=== PATIENT | male | born 1935 | race Caucasian/White ===

== ENCOUNTER 2017-08-28 10:04 | Outpatient (CLI) | payer OTHER ==
[~2017-08-28 10:04] MED LIST: APETIGEN PLUS120 ML PO; AVODART0.5 MG; ENALAPRIL MALEAT5 MG; TRICOR145 MG
== END 2017-08-28 10:22 | disposition home or self-care (01) ==
LOC: NUCLEAR 10:04
DX: R94.31 Abnormal electrocardiogram [ECG] [EKG] (principal); I45.2 Bifascicular block; I11.9 Hypertensive heart disease without heart failure; R07.89 Other chest pain

== ENCOUNTER 2019-02-19 00:24 | Inpatient (IN) | payer OTHER ==
[~2019-02-19] VITALS: Ht 177.8 cm; Wt 85.3 kg
[2019-02-19] MEDS ORDERED: LEXAPRO5 MG (00:34)
[2019-02-19] MEDS ORDERED: CALCIUM 600+D1 EACH (00:35)
[2019-02-19] MEDS ORDERED: ATARAX25 MG (00:40)
[2019-02-19] MEDS ORDERED: NIFEDIPINE ER30 M1 (00:41)
== END 2019-02-20 12:16 | disposition home or self-care (01) | DRG 343 ==
LOC: ER 00:24 → O/R 06:01 → SURG 06:01 → SEC-K 06:01 → O/R 09:45 → SURG 13:19
PROVIDERS: ADMIT Surgery
PROC: BW21Y0Z Computerized Tomography (CT Scan) of Abdomen and Pelvis using Other Contrast, Unenhanced and Enhanced (ICD-10-PCS; 2019-02-19)
PROC: 0DTJ4ZZ Resection of Appendix, Percutaneous Endoscopic Approach (ICD-10-PCS; principal; 2019-02-19 09:30)
DX: K35.890 Other acute appendicitis without perforation or gangrene (principal); I10 Essential (primary) hypertension; I70.0 Atherosclerosis of aorta; R10.31 Right lower quadrant pain; Z88.2 Allergy status to sulfonamides; Z88.8 Allergy status to other drugs, medicaments and biological substances

== ENCOUNTER 2019-07-07 15:49 | Emergency (ER) | payer OTHER ==
[~2019-07-07] VITALS: Ht 177.8 cm; Wt 84.4 kg
[~2019-07-07 15:49] MED LIST changes: +ATARAX25 MG; +CALCIUM 600+D1 EACH; +LEXAPRO5 MG; +NIFEDIPINE ER30 M1
[2019-07-07] MEDS ORDERED: NIFEDIPINE20 MG PO (16:23)
== END 2019-07-07 23:23 | disposition home or self-care (01) ==
LOC: ER 15:49
DX: N28.1 Cyst of kidney, acquired (principal); R10.2 Pelvic and perineal pain; R10.11 Right upper quadrant pain; R10.31 Right lower quadrant pain

== ENCOUNTER 2019-09-17 09:46 | Outpatient (CLI) | payer OTHER ==
[~2019-09-17 09:46] MED LIST changes: +NIFEDIPINE20 MG PO
== END 2019-09-17 09:53 | disposition home or self-care (01) ==
LOC: NUCLEAR 09:46
DX: I11.9 Hypertensive heart disease without heart failure (principal); E78.1 Pure hyperglyceridemia; I45.0 Right fascicular block; R94.31 Abnormal electrocardiogram [ECG] [EKG]

== ENCOUNTER 2021-02-22 23:43 | Inpatient (IN) | payer OTHER ==
[~2021-02-22] VITALS: Ht 180.3 cm; Wt 81.6 kg
[2021-02-23] MEDS ORDERED: COZAAR50 MG (00:09)
== END 2021-02-28 13:05 | disposition home or self-care (01) | DRG 690 ==
LOC: ER 23:43 → MEDI 02-23 09:33
PROVIDERS: ADMIT Internal Medicine; ATTEND Internal Medicine
DX: N39.0 Urinary tract infection, site not specified (principal); N41.0 Acute prostatitis; N18.4 Chronic kidney disease, stage 4 (severe); R31.9 Hematuria, unspecified; Z20.822 Contact with and (suspected) exposure to COVID-19; I12.9 Hypertensive chronic kidney disease with stage 1 through stage 4 chronic kidney disease, or unspecified chronic kidney disease

== ENCOUNTER 2023-05-30 07:19 | Outpatient (CLI) | payer OTHER ==
[~2023-05-30 07:19] MED LIST changes: +COZAAR50 MG
== END 2023-05-30 07:24 | disposition home or self-care (01) ==
LOC: SONOGRAMA 07:19
PROVIDERS: ATTEND Specialist
DX: I12.9 Hypertensive chronic kidney disease with stage 1 through stage 4 chronic kidney disease, or unspecified chronic kidney disease (principal); N18.31 Chronic kidney disease, stage 3a; Z88.2 Allergy status to sulfonamides

== ENCOUNTER 2023-09-27 09:45 | Outpatient (CLI) | payer OTHER | END 2023-09-27 10:15 | disposition home or self-care (01) | LOC: TOM 09:45 | PROVIDERS: ATTEND Internal Medicine Hematology & Oncology | DX: D69.6 Thrombocytopenia, unspecified (principal); R10.814 Left lower quadrant abdominal tenderness; N13.30 Unspecified hydronephrosis; Z88.2 Allergy status to sulfonamides ==

== ENCOUNTER 2024-07-08 15:07 | Outpatient (CLI) | payer OTHER | END 2024-07-08 23:00 | disposition home or self-care (01) | LOC: LAB 15:07 | PROVIDERS: ATTEND Urology | DX: R97.20 Elevated prostate specific antigen [PSA] (principal) ==

== ENCOUNTER 2024-08-08 08:17 | Outpatient (CLI) | payer OTHER | END 2024-08-08 08:28 | disposition home or self-care (01) | LOC: RAD 08:17 | PROVIDERS: ATTEND Specialist | DX: J45.998 Other asthma (principal); I63.12 Cerebral infarction due to embolism of basilar artery; I67.2 Cerebral atherosclerosis ==

== ENCOUNTER 2024-08-19 21:37 | Inpatient (IN) | payer OTHER ==
[~2024-08-19] VITALS: Ht 165.1 cm; Wt 184.6 kg
--- NOTE | 2024-08-19 21:43 | NUR ---
SE RECIBE PTE ALERTA Y ORIENTADO EN AMBULANCIA EL CUAL REFIERE VENIR POR CAIDA EN LA PARTE TRASERA DE MANZO HOGAR Y DEBILIDAD CORPORAL. SE MIDEN S/V A PTE Y SE UBICA.
--- NOTE | 2024-08-19 21:54 | NUR ---
SE NOTIFICA ESTUDIO DE CT PENDIENTE A REALIZAR.
[2024-08-19] MEDS ORDERED: MEPERIDINE HCL/PF 25 MG/ML VIAL IV ONE (22:00)
[2024-08-20 00:15] LABS: URINE APPEARANCE Clear; URINE BILIRRUBIN Negative (NEGATIVE); URINE BLOOD Trace; URINE COLOR Yellow; URINE GLUCOSE Negative (NEGATIVE); URINE KETONE Negative (NEGATIVE); URINE LEUKOCYTE Moderate; URINE NITRATE Negative; URINE PROTEIN Trace (NEGATIVE); URINE UROBILINOGEN 0.2 E.U./dl
[2024-08-20 00:20] LABS: URINE BACTERIA 45.2 uL (0.0-1933); URINE CAST 1.62 uL (0.0-1.40); URINE EPITHELIAL CELLS 14.7 uL (0.0-38.8)
[2024-08-20 00:22] LABS: HEMATOCRIT 40.2 % (39.0-48.0); HEMOGLOBIN 13.7 g/dL (13-16.00); MEAN CELL VOLUME 99.2 fL (80.0-100.00); MEAN CORPUSCULAR HEMOGLOBIN 33.9 pg (27.00-32.0); MEAN CORPUSCULAR HGB CONC 34.1 g/dl (32.0-36.0); RED BLOOD COUNT 4.06 M/uL (4.00-6.00); RED CELL DISTRIBUTION WIDTH 12.6 % (11.5-14.5)
[2024-08-20 00:25] LABS: PLATELET COUNT 128 K/uL (150-450)
[2024-08-20 00:31] LABS: CALCIUM 9.2 mg/dL (8.5-10.1); CREATININE SERUM 1.48 mg/dL (0.70-1.30); GFR 44.75; POTASSIUM 4.8 mEq/L (3.5-5.1)
[2024-08-20 00:38] LABS: URINE RBC 1.9 uL (0.0-20.8)
[2024-08-20] MEDS ORDERED: 0.9 % SODIUM CHLORIDE 1,000 ML IV ONE (05:00)
--- NOTE | 2024-08-20 15:49 | NUR ---
PTE ALERTA EN COMPANIA DE FAMILIAR,EN SIMONA CON BARANDAS ELEVADAS,EVALUADO POR DR Nancy GARCIA.
[2024-08-20] MEDS ORDERED: CEFTRIAXONE SODIUM 2,000 MG in 0.9 % SODIUM CHLORIDE 100 ML IV SCH (18:46)
[2024-08-20] MEDS ORDERED: DONEPEZIL HCL 5 MG TABLET PO SCH (18:48)
[2024-08-20] MEDS ORDERED: 0.9 % SODIUM CHLORIDE 1,000 ML IV SCH (19:00)
[2024-08-20] MEDS ORDERED: ACETAMINOPHEN 500 MG GEL..CAP PO PRN (19:00)
[2024-08-20 20:58] LABS: INR 1.02; PARTIAL THROMBOPLASTIN TIME 32.3 SECONDS (22.0-34.0); PROTHROMBIN TIME 11.1 SECONDS (9.0-11.5)
[2024-08-20 21:31] LABS: C-REACTIVE PROTEIN 10.1 MG/DL (0.00-0.29)
[2024-08-21 02:33] VITALS: BP 140/57; O2SAT 97
[2024-08-21] MEDS ORDERED: FAMOTIDINE/PF 20 MG in 0.9 % SODIUM CHLORIDE 8 ML IV PUSH SCH (09:00)
[2024-08-21] MEDS ORDERED: LOSARTAN POTASSIUM 50 MG TABLET PO SCH (09:00)
[2024-08-21] MEDS ORDERED: ENOXAPARIN SODIUM 40 MG/0.4 ML SYRINGE SUBCUTANEO SCH (09:00)
[2024-08-21] MEDS ORDERED: ATORVASTATIN CALCIUM 20 MG TABLET PO SCH (09:00)
[2024-08-21 09:29] VITALS: BP 150/65
[2024-08-21 18:23] VITALS: BP 169/72
[2024-08-21 18:26] VITALS: BP 169/72
[2024-08-21] MEDS ORDERED: hydrALAZINE HCL 20 MG VIAL IV PRN (18:30)
[2024-08-21] MEDS ORDERED: AMLODIPINE BESYLATE 10 MG TABLET PO NR (19:00)
[2024-08-22 01:42] VITALS: BP 148/65
[2024-08-22 06:18] LABS: HEMATOCRIT 38.3 % (39.0-48.0); MEAN CELL VOLUME 99.6 fL (80.0-100.00); MEAN CORPUSCULAR HEMOGLOBIN 33.8 pg (27.00-32.0); MEAN CORPUSCULAR HGB CONC 33.9 g/dl (32.0-36.0); RED BLOOD COUNT 3.85 M/uL (4.00-6.00); RED CELL DISTRIBUTION WIDTH 12.2 % (11.5-14.5)
[2024-08-22 06:31] LABS: PLATELET COUNT 120 K/uL (150-450)
[2024-08-22 07:02] LABS: CALCIUM 8.6 mg/dL (8.5-10.1); CREATININE SERUM 0.95 mg/dL (0.70-1.30); GFR 74.65; POTASSIUM 4.51 mEq/L (3.5-5.1)
[2024-08-22 08:29] VITALS: BP 155/66
[2024-08-22] MEDS ORDERED: AMLODIPINE BESYLATE 10 MG TABLET PO SCH (17:00)
[2024-08-22 17:03] VITALS: BP 185/66
[2024-08-22 21:53] LABS: URINE APPEARANCE Clear; URINE BILIRRUBIN Negative (NEGATIVE); URINE BLOOD Large; URINE COLOR Yellow; URINE KETONE Negative (NEGATIVE); URINE LEUKOCYTE Small; URINE NITRATE Negative; URINE PROTEIN 30 (NEGATIVE); URINE UROBILINOGEN 0.2 E.U./dl
[2024-08-22 21:57] LABS: URINE BACTERIA 63.6 uL (0.0-1933); URINE EPITHELIAL CELLS 6.9 uL (0.0-38.8); URINE RBC 398.1 uL (0.0-20.8); URINE WBC 69.3 uL (0.0-23.2)
[2024-08-22 22:02] LABS: URINE CAST 0.88 uL (0.0-1.40); URINE GLUCOSE 100 MG/DL (NEGATIVE)
[2024-08-23 02:20] VITALS: BP 167/66; O2SAT 97
[2024-08-23 08:56] VITALS: BP 140/61
[2024-08-23] MEDS ORDERED: MEPERIDINE HCL/PF 25 MG/ML VIAL IV PRN (14:15)
[2024-08-23] MEDS ORDERED: METHYLPREDNISOLONE SOD SUCC 40 MG VIAL IV NR (14:15)
[2024-08-23 17:48] VITALS: BP 160/74; O2SAT 97
[2024-08-24 01:23] VITALS: BP 135/57; O2SAT 98
[2024-08-24] MEDS ORDERED: PANTOPRAZOLE SODIUM 40 MG TABLET.DR PO SCH (07:30)
[2024-08-24 09:35] VITALS: BP 149/65
[2024-08-24 17:29] VITALS: BP 153/64; O2SAT 97
[2024-08-25 00:32] VITALS: BP 123/56; O2SAT 98
[2024-08-25 06:46] LABS: HEMATOCRIT 37.6 % (39.0-48.0); HEMOGLOBIN 12.9 g/dL (13-16.00); MEAN CORPUSCULAR HGB CONC 34.4 g/dl (32.0-36.0); PLATELET COUNT 147 K/uL (150-450); RED CELL DISTRIBUTION WIDTH 12.2 % (11.5-14.5)
[2024-08-25 07:12] LABS: ALBUMIN 2.5 gm/dL (3.4-5.0); BILIRUBIN TOTAL 0.74 mg/dL (0.3-1.2); CALCIUM 8.6 mg/dL (8.5-10.1); CREATININE SERUM 0.86 mg/dL (0.70-1.30); GFR 83.73; GLOBULINA 2.9 G/DL (2.4-3.5); POTASSIUM 4.35 mEq/L (3.5-5.1); TOTAL PROTEIN 5.4 gm/dL (6.4-8.2)
[2024-08-25 07:15] LABS: C-REACTIVE PROTEIN 14.1 MG/DL (0.00-0.29)
[2024-08-25 08:50] VITALS: BP 144/63
[2024-08-25] MEDS ORDERED: TRAMADOL HCL 50 MG TABLET PO STA (17:04)
[2024-08-25] MEDS ORDERED: TRAMADOL HCL 50 MG TABLET PO PRN (17:15)
[2024-08-25] MEDS ORDERED: FAMOtidine 20 MG TABLET PO SCH (21:00)
[2024-08-26 01:12] VITALS: BP 160/73
[2024-08-26 08:05] VITALS: BP 160/85
[2024-08-26 16:43] VITALS: BP 167/60; O2SAT 97
[2024-08-26] MEDS ORDERED: levoFLOXacin 500 MG TABLET PO SCH (17:00)
[2024-08-26] MEDS ORDERED: VANCOMYCIN HCL 1,000 MG VIAL IV SCH (17:00)
[2024-08-26] MEDS ORDERED: OxyCODONE HCL/APAP UD (PERCOCET) PO STA (18:59)
[2024-08-27 01:48] VITALS: BP 133/61
[2024-08-27 06:37] LABS: HEMATOCRIT 37.4 % (39.0-48.0); HEMOGLOBIN 12.8 g/dL (13-16.00); MEAN CELL VOLUME 99.3 fL (80.0-100.00); MEAN CORPUSCULAR HGB CONC 34.3 g/dl (32.0-36.0); PLATELET COUNT 170 K/uL (150-450); RED BLOOD COUNT 3.76 M/uL (4.00-6.00); RED CELL DISTRIBUTION WIDTH 12.1 % (11.5-14.5)
[2024-08-27 07:20] LABS: ALBUMIN 2.3 gm/dL (3.4-5.0); BILIRUBIN TOTAL 0.94 mg/dL (0.3-1.2); C-REACTIVE PROTEIN 17.2 MG/DL (0.00-0.29); CALCIUM 8.5 mg/dL (8.5-10.1); CREATININE SERUM 0.97 mg/dL (0.70-1.30); GFR 72.87; GLOBULINA 3.2 G/DL (2.4-3.5); PHOSPHOROUS 3.1 mg/dL (2.5-4.9); POTASSIUM 4.27 mEq/L (3.5-5.1); TOTAL PROTEIN 5.5 gm/dL (6.4-8.2)
[2024-08-27 08:31] VITALS: BP 180/80
[2024-08-27] MEDS ORDERED: METHYLPREDNISOLONE SOD SUCC 40 MG VIAL IV ONE (10:45)
[2024-08-27] MEDS ORDERED: DIPHENHYDRAMINE HCL 50 MG/ML VIAL 1ML IV ONE (10:45)
[2024-08-27 20:12] VITALS: BP 131/63; O2SAT 97
[2024-08-27] MEDS ORDERED: LINEZOLID IN DEXTROSE 5% 300 ML IV SCH (21:00)
[2024-08-28 02:05] VITALS: BP 113/50
[2024-08-28 09:24] VITALS: BP 154/70
[2024-08-28 17:20] VITALS: BP 139/70; O2SAT 98
== END 2024-08-28 18:13 | disposition home or self-care (01) | DRG 690 ==
LOC: ER 21:37 → MEDJ 08-20 19:18
PROVIDERS: Emergency Medicine; General Practice; Internal Medicine; Internal Medicine Infectious Disease; ADMIT Specialist; ATTEND Specialist
PROC: BR29ZZZ Computerized Tomography (CT Scan) of Lumbar Spine (ICD-10-PCS; principal; 2024-08-19)
PROC: B020ZZZ Computerized Tomography (CT Scan) of Brain (ICD-10-PCS; 2024-08-19)
PROC: B030ZZZ Magnetic Resonance Imaging (MRI) of Brain (ICD-10-PCS; 2024-08-22)
PROC: 4A12X4Z Monitoring of Cardiac Electrical Activity, External Approach (ICD-10-PCS; 2024-08-22)
PROC: B54MZZZ Ultrasonography of Right Upper Extremity Veins (ICD-10-PCS; 2024-08-24)
DX: N39.0 Urinary tract infection, site not specified (principal); N17.9 Acute kidney failure, unspecified; I67.89 Other cerebrovascular disease; L03.113 Cellulitis of right upper limb; N41.0 Acute prostatitis; I80.8 Phlebitis and thrombophlebitis of other sites; R21 Rash and other nonspecific skin eruption; R55 Syncope and collapse; M54.89 Other dorsalgia; I12.9 Hypertensive chronic kidney disease with stage 1 through stage 4 chronic kidney disease, or unspecified chronic kidney disease; N18.31 Chronic kidney disease, stage 3a; I69.393 Ataxia following cerebral infarction; F03.90 Unspecified dementia, unspecified severity, without behavioral disturbance, psychotic disturbance, mood disturbance, and anxiety; N40.0 Benign prostatic hyperplasia without lower urinary tract symptoms; E78.5 Hyperlipidemia, unspecified; B96.89 Other specified bacterial agents as the cause of diseases classified elsewhere; Z88.2 Allergy status to sulfonamides; Z88.8 Allergy status to other drugs, medicaments and biological substances; Z72.0 Tobacco use
CPT/HCPCS: 70553

== ENCOUNTER 2024-11-10 10:39 | Outpatient (CLI) | payer OTHER | END 2024-11-10 10:45 | disposition home or self-care (01) | LOC: TOM 10:39 | PROVIDERS: ATTEND Specialist | DX: R91.8 Other nonspecific abnormal finding of lung field (principal); G58.8 Other specified mononeuropathies ==